=== PATIENT | male | born 1995 | race Hispanic/Latino ===

== ENCOUNTER 2018-09-04 20:47 | Inpatient (IN) | payer OTHER ==
[2018-09-04 22:05] LABS: HEMATOCRIT 42.8 % (42.0-52.0); HEMOGLOBIN 14.8 g/dl (13.5-17.5); MEAN CORPUSCULAR HEMOGLOBIN 29.3 pg (27.0-33.0); MEAN CORPUSCULAR HGB CONC 34.6 g/dl (32.0-36.5); MEAN CORPUSCULAR VOLUME 84.8 fl (80.0-96.0); PLATELET COUNT, AUTOMATED 210 10^3/uL (150-450); RED BLOOD COUNT 5.05 10^6/uL (4.30-6.10); RED CELL DISTRIBUTION WIDTH 12.4 % (11.5-14.5); WHITE BLOOD COUNT 7.5 10^3/uL (4.0-10.0)
[2018-09-04 22:36] LABS: ACETAMINOPHEN LEVEL < 2.0 UG/ML (10.0-30.0); ALBUMIN 3.9 GM/DL (3.2-5.2); ALKALINE PHOSPHATASE 67 U/L (45-117); ALT/SGPT 25 U/L (12-78); ANION GAP 6 MEQ/L (8-16); AST/SGOT 24 U/L (7-37); BILIRUBIN,DIRECT 0.2 MG/DL (0.0-0.2); BILIRUBIN,TOTAL 0.6 MG/DL (0.2-1.0); BLOOD UREA NITROGEN 16 MG/DL (7-18); CALCIUM LEVEL 8.5 MG/DL (8.5-10.1); CARBON DIOXIDE LEVEL 30 MEQ/L (21-32); CHLORIDE LEVEL 105 MEQ/L (98-107); CREATININE FOR GFR 1.27 MG/DL (0.70-1.30); ETHYL ALCOHOL (ETHANOL) < 0.003 % (0.000-0.010); GLOMERULAR FILTRATION RATE > 60.0 (>60); GLUCOSE, FASTING 76 MG/DL (70-100); POTASSIUM SERUM 3.8 MEQ/L (3.5-5.1); SALICYLATE LEVEL < 1.7 MG/DL (5.0-30.0); SODIUM LEVEL 141 MEQ/L (136-145); TOTAL PROTEIN 6.9 GM/DL (6.4-8.2)
[2018-09-05 00:05] LABS: AMPHETAMINES LEVEL URINE NEGATIVE (NEGATIVE); BARBITURATES URINE NEGATIVE (NEGATIVE); BENZODIAZEPINES URINE NEGATIVE (NEGATIVE); CANNABINOIDS URINE NEGATIVE (NEGATIVE); COCAINE METABOLITE URINE NEGATIVE (NEGATIVE); METHADONE URINE NEGATIVE (NEGATIVE); OPIATES URINE NEGATIVE (NEGATIVE); PHENCYCLIDINE URINE NEGATIVE (NEGATIVE)
[2018-09-05] MEDS ORDERED: MAALOX 30 ML SUSP *UDC PO (00:30)
[2018-09-05] MEDS ORDERED: ACETAMINOPHEN TAB 650MG DOSE (2X325MG) PO (00:30)
[2018-09-05] MEDS ORDERED: MOM 30ML SUSPENSION UDC PO (00:30)
[2018-09-05] MEDS: SERTRALINE HCL 50 MG TAB PO (14:10)
[2018-09-05] MEDS: traZODone 50 MG TAB PO (21:30)
[2018-09-06] MEDS: SERTRALINE HCL 50 MG TAB PO (09:43)
[2018-09-07] MEDS: SERTRALINE HCL 50 MG TAB PO (08:24)
[2018-09-08] MEDS: SERTRALINE HCL 50 MG TAB PO (08:17)
[2018-09-08] MEDS: NICOTINE 21MG/24HR 1 EA TRANSDERMAL TD (10:25)
[2018-09-09] MEDS: SERTRALINE HCL 50 MG TAB PO (08:33)
[2018-09-09] MEDS: NICOTINE 21MG/24HR 1 EA TRANSDERMAL TD (08:33)
[2018-09-10] MEDS: NICOTINE 21MG/24HR 1 EA TRANSDERMAL TD (08:32)
[2018-09-10] MEDS: SERTRALINE HCL 50 MG TAB PO (08:32)
[2018-09-10] MEDS: traZODone 50 MG TAB PO (21:05)
[2018-09-11] MEDS: SERTRALINE HCL 50 MG TAB PO (07:59)
[2018-09-11] MEDS: NICOTINE 21MG/24HR 1 EA TRANSDERMAL TD (08:00)
== END 2018-09-11 10:15 | disposition home or self-care (01) | DRG 885 ==
LOC: M ED INP 09-05 00:20 → M PSY 09-05 02:53 → M ED 20:47
DX: F33.3 Major depressive disorder, recurrent, severe with psychotic symptoms (principal); F10.20 Alcohol dependence, uncomplicated; F17.210 Nicotine dependence, cigarettes, uncomplicated; G47.00 Insomnia, unspecified; Z91.5 Personal history of self-harm; Z63.4 Disappearance and death of family member